=== PATIENT | female | born 1935 | race Caucasian/White ===

== ENCOUNTER 2020-12-19 13:19 | Outpatient (REF) | payer MEDICARE, OTHER, SELFPAY ==
--- NOTE | ~2020-12-19 | MM_ITS ---
EXAMINATION: MM DIAGNOSTIC DIGITAL BREAST TOMOSYNTHESIS, LEFT CLINICAL INFORMATION: 85-year-old for short interval follow-up probable benign nodular asymmetric density medial left breast, not persistent on prior diagnostic additional views. Assess for developing density. Family history breast cancer, sister. COMPARISON: Mammography: 04/18/2020, 04/11/2020 (BI-RADS 0), 04/06/2019, 03/31/2018, 03/26/2017 TECHNIQUE: Digital breast tomosynthesis is performed in both the craniocaudal and mediolateral oblique views along with computer-aided detection (CAD). Synthesized 2D images are generated from the tomosynthesis. Additional spot MLO and standard ML views are obtained. FINDINGS: There are scattered areas of fibroglandular density (ACR BI-RADS breast composition Category b). Parenchymal pattern is similar to prior studies. There is no developing density or interval mass or architectural abnormality. There is a biopsy clip marker again noted mid 3:00 position. No abnormal calcifications. No focal nodular asymmetry. Results are provided to the patient at time of visit by the technologist. MM/MM tomosynthesis diagnostic BI IMPRESSION: No mammographic evidence of malignancy. ASSESSMENT: BI-RADS 2: Benign RECOMMENDATION: Routine annual mammography screening, due in 6 months. This patient's information was entered into a reminder system with a target due date for their next mammogram.
== END 2020-12-19 13:20 | disposition home or self-care (01) ==
LOC: HO.MAMMO 13:19
PROVIDERS: Visit Provider Hospitalist
DX: R92.2 Inconclusive mammogram (principal)
CPT/HCPCS: 77062; 77066

== ENCOUNTER 2021-04-04 12:53 | Outpatient (REF) | payer MEDICARE, OTHER, SELFPAY ==
--- NOTE | ~2021-04-04 | MM_ITS ---
EXAMINATION: MM SCREENING DIGITAL BREAST TOMOSYNTHESIS, BILATERAL CLINICAL INFORMATION: Screening. Asymptomatic. Age 85. Family history breast cancer, sister. COMPARISON: Mammography: 12/19/2020, 04/18/2020, 04/11/2020, 04/06/2019, 03/31/2018 TECHNIQUE: Digital breast tomosynthesis is performed in both the craniocaudal and mediolateral oblique views along with computer-aided detection (CAD). Synthesized 2D images are generated from the tomosynthesis. Additional right exaggerated CC, right MLO views are provided. FINDINGS: There are scattered areas of fibroglandular density (ACR BI-RADS breast composition Category b). Parenchymal pattern is heterogeneously dense. There is no significant mass or architectural abnormality. No developing density. There are scattered round and vascular calcifications. Biopsy clip marker is again noted mid 4:00 left breast. The axilla and skin contours are unremarkable. No significant changes. MM/MM tomosynthesis screening BI IMPRESSION: No mammographic evidence of malignancy. ASSESSMENT: BI-RADS 2: Benign RECOMMENDATION: Routine annual mammography screening. This patient's information was entered into a reminder system with a target due date for their next mammogram.
== END 2021-04-04 12:54 | disposition home or self-care (01) ==
LOC: HO.MAMMO 12:53
PROVIDERS: PCP Hospitalist; Visit Provider Hospitalist
DX: Z12.31 Encounter for screening mammogram for malignant neoplasm of breast (principal)
CPT/HCPCS: 77063; 77067

== ENCOUNTER 2022-02-21 13:50 | Emergency (ER) | payer MEDICARE, OTHER, SELFPAY ==
--- NOTE | ~2022-02-21 | XR_ITS ---
EXAMINATION: XR CHEST CLINICAL INFORMATION: Chest discomfort COMPARISON: None TECHNIQUE: Frontal view of the chest was obtained. FINDINGS: No significant abnormality is noted involving the heart, lungs, mediastinum, bony thorax or soft tissues. XR/XR chest 1V IMPRESSION: Unremarkable examination.
[2022-02-21 14:16] VITALS: BP 156/78; BP 167/73; PULSE 79; PULSE 84; RESP 16; TEMP 36.7; O2SAT 95; BMI 22.5
--- NOTE | 2022-02-21 14:19 | ECG_ITS ---
Test Reason : CHEST DISCOMFORT Blood Pressure : / mmHG Vent. Rate : 084 BPM Atrial Rate : 084 BPM P-R Int : 142 ms QRS Dur : 076 ms QT Int : 374 ms P-R-T Axes : 073 017 068 degrees QTc Int : 441 ms Sinus rhythm with occasional Premature ventricular complexes Otherwise normal ECG When compared with ECG of 01-MAY-2005 05:34, Premature ventricular complexes are now Present Referred By: Generic ED Physician Electronically Signed By:Delbert Sinha
[2022-02-21 14:20] VITALS: PULSE 88; RESP 16
[2022-02-21 14:56] LABS: MANUAL DIFF FLAG NO
[2022-02-21 14:57] LABS: Basophils Percent Auto 0.2 % (0-2); Eosinophils Percent Auto 0.2 % (0-4); Hematocrit 32.9 % (37.0-47.0); Imm Gran Abs Auto 0.05 X10*3/uL (0.00-0.03); Imm Gran Pct Auto 0.4 % (0.0-0.4); Mean Corpuscular HGB Conc 36.5 g/dl (31.0-35.0); Mean Corpuscular Hemoglobin 34.7 pg (27.0-33.0); Mean Corpuscular Volume 95.1 fL (80.0-98.0); Mean Platelet Volume 9.6 fL (9.4-12.3); Monocytes Absolute Auto 0.7 X10*3/uL (0.1-1.2); Neutrophils Absolute Auto 12.2 x10*3/uL (2.0-8.3); Neutrophils Percent Auto 87.2 % (45-73); Platelet Count 286 X10*3/uL (160-400); Red Blood Count 3.46 X10*6/uL (4.20-5.50); Red Cell Distribution Width 12.9 % (11.0-16.0); White Blood Count 13.9 X10*3/uL (4.8-10.8)
--- NOTE | 2022-02-21 15:02 | ED.GENADULT ---
HPI - General Adult General Chief complaint: General Medical Stated complaint: INDEGESTION Time Seen by Provider: 02/21/22 14:49 Source: patient, family (Niece) and EMS Mode of arrival: EMS Limitations: no limitations History of Present Illness HPI narrative: 86-year-old female brought in by ambulance for feeling indigestion since last night, patient described as a burning sensation on the mid chest and epigastric area that has been constant, no radiation, associated with nausea but no vomiting, no shortness of breath, pain started after ate dinner last night patient ate cheeseburger with onion, no relieving factors, food will worsening the symptoms, had indigestion sensation in the past but never that constant. Patient also been complaining of constipation no bowel movement for the last 4 days, able to pass gas from below and also burp from above, no history of abdominal surgery in the past. Patient declined any previous history heart attack. Related Data Previous Rx's Medication Instructions Recorded omeprazole 20 mg capsule,delayed 20 mg PO DAILY #14 caps 02/21/22 release Allergies Allergy/AdvReac Type Severity Reaction Status Date / Time No Known Allergies Allergy Verified 02/21/22 14:18 [No Known Allergies*] Review of Systems Review of Systems: All other systems are reviewed and are negative Constitutional: Reports as per HPI and Reports no additional constitutional complaints Eyes: Reports as per HPI and Reports no additional eye complaints Reports system reviewed and no additional complaints, except as documented Cardiovascular: Reports as per HPI and Reports no additional cardiovascular complaints Respiratory: Reports as per HPI and Reports no additional respiratory complaints Gastrointestinal: Reports as per HPI and Reports no additional gastrointestinal complaints Genitourinary: Reports no additional female genitourinary complaints Musculoskeletal: Reports no additional musculoskeletal complaints Skin/Breast: Reports system reviewed and no additional complaints, except as docu Psychiatric: Reports no additional psychiatric complaints Endocrine: Reports no additional endocrine complaints Hematologic/Lymphatic: Reports no additional hematologic/lymphatic complaints Allergic/Immunologic: Reports no additional allergic/immunologic complaints Reports system reviewed and no additional complaints, except as documented and Reports Abnormal speech present [facility] Past Medical History Medical History No known health problems Social History Social History Alcohol intake: current Alcohol intake frequency: does not drink Patient Tobacco Use Status: Never used Tobacco Use of substances other than those prescribed or required for medical reasons: No Advance Directives: No Advance Directives Information Provided: Yes Physical Exam ED Vital Signs: Vital Signs - 24 hr 02/21/22 14:16 02/21/22 14:20 02/21/22 15:36 Temperature 98.0 F Pulse Rate 84 88 87 Respiratory Rate 16 16 24 H Blood Pressure 167/73 H 144/71 H Pulse Oximetry 95 98 Oxygen Delivery Method Room Air Room Air 02/21/22 20:01 Temperature 97.9 F Pulse Rate 85 Respiratory Rate 19 Blood Pressure 156/57 H Pulse Oximetry 96 Oxygen Delivery Method Room Air BMI result Body Mass Index 22.5 Vital signs have been reviewed as appeared to be correct. Blood pressure normal. Heart rate normal. Respiration rate normal. Temperature normal. Oxygen saturation normal. Appearance: Alert. Oriented X3. No acute distress. Head: Normal external exam. Normocephalic. Atraumatic. No Wiley signs noted. No raccoon eyes noted Eyes: PERRLA. EOMI. Conjunctiva and sclera normal. Eyelids normal. ENT: TM's Normal. Pharynx normal. Uvula midline. Moist mucous membranes. No trismus noted. No drooling noted. No muffled voice noted. Neck: Normal inspection. Neck supple. FROM. No adenopathy. Thyroid Normal. No meningeal signs. No neck mass noted. CVS: Normal heart rate and rhythm. Heart sound normal. No murmurs noted. Pulses normal throughout. Respiratory: No respiratory distress. Painless inspiration. Breath sounds normal. No wheezes/rales/rhonchi noted. Chest nontender. No accessory muscle usage noted or decreased air movement noted. Abdomen: Soft and nontender. Bowel sounds normal in all 4 quadrants. No distention noted. No organomegaly noted. No visible injury noted. Rectal exam: Hard stool in the vault, brown with no blood. Back: No CVA tenderness. Full range of motion noted. Skin: Skin warm and dry. Normal skin color. Normal skin turgor. No rashes/lesions/lacerations noted. Extremities: No lower extremity edema. Extremities exhibit normal range of motion. Extremities nontender. Neuro: Oriented X 3. Cranial nerve exam: II-XII are grossly intact No motor deficit. No sensory deficit. Reflexes normal. Course Course Course Narrative: 86-year-old female came in for evaluation of heartburn after eating cheeseburger was on urine last night, patient has unremarkable EKG with 3 troponin of negative, patient vomited undigested food in the ED with partial relief, nature of pain is not suggesting cardiac pain. Will start the patient on PPI and follow-up with GI. Constipation patient had disimpacted in the ED. Mild hypernatremia improved with a L of normal saline. Medical Decision Making Lab Data Lab results reviewed: Yes I reviewed the patient's lab results. Result diagrams: 02/21/22 14:51 02/21/22 19:39 Labs: Lab Results 02/21/22 02/21/22 02/21/22 Range/Units 14:51 14:51 16:01 WBC 13.9 H (4.8-10.8) X10*3/uL RBC 3.46 L (4.20-5.50) X10*6/uL Hgb 12.0 (12.0-16.0) g/dl Hct 32.9 L (37.0-47.0) % MCV 95.1 (80.0-98.0) fL MCH 34.7 H (27.0-33.0) pg MCHC 36.5 H (31.0-35.0) g/dl RDW 12.9 (11.0-16.0) % Plt Count 286 (160-400) X10*3/uL MPV 9.6 (9.4-12.3) fL Immature Gran % (Auto) 0.4 (0.0-0.4) % Neut % (Auto) 87.2 H (45-73) % Lymph % (Auto) 7.0 L (20-40) % [place] % (Auto) 5.0 (2-11) % Eos % (Auto) 0.2 (0-4) % Baso % (Auto) 0.2 (0-2) % Lymph # (Auto) 1.0 L (1.2-4.9) X10*3/uL [place] # (Auto) 0.7 (0.1-1.2) X10*3/uL Eos # (Auto) 0.0 (0.0-0.4) X10*3/uL Baso # (Auto) 0.0 (0.0-0.2) X10*3/uL Abs Immat Gran (auto) 0.05 H (0.00-0.03) X10*3/uL Absolute Neuts (auto) 12.2 H (2.0-8.3) x10*3/uL Absolute Nucleated RBC 0.000 (0.0-0.012) X10*3/uL Nucleated RBC % (auto) 0.0 (0.0-0.2) /100WBC Sodium 127 L (135-145) mmol/L Potassium 3.9 (3.3-5.1) mmol/L Chloride 97 (96-108) mmol/L Carbon Dioxide 19 L (22-29) mmol/L Anion Gap 15 (12-20) BUN 14 (9-16) mg/dL Creatinine 0.63 (0.5-1.4) mg/dL Estim Creat Clear Calc 53.0 Estimated GFR > 60 Random Glucose 113 (60-115) mg/dL Calcium 8.8 (8.4-10.2) mg/dL Troponin I High Sens 4.6 (<3.5-17.0) ng/L 02/21/22 02/21/22 02/21/22 Range/Units 16:01 19:39 19:39 WBC (4.8-10.8) X10*3/uL RBC (4.20-5.50) X10*6/uL Hgb (12.0-16.0) g/dl Hct (37.0-47.0) % MCV (80.0-98.0) fL MCH (27.0-33.0) pg MCHC (31.0-35.0) g/dl RDW (11.0-16.0) % Plt Count (160-400) X10*3/uL MPV (9.4-12.3) fL Immature Gran % (Auto) (0.0-0.4) % Neut % (Auto) (45-73) % Lymph % (Auto) (20-40) % [place] % (Auto) (2-11) % Eos % (Auto) (0-4) % Baso % (Auto) (0-2) % Lymph # (Auto) (1.2-4.9) X10*3/uL [place] # (Auto) (0.1-1.2) X10*3/uL Eos # (Auto) (0.0-0.4) X10*3/uL Baso # (Auto) (0.0-0.2) X10*3/uL Abs Immat Gran (auto) (0.00-0.03) X10*3/uL Absolute Neuts (auto) (2.0-8.3) x10*3/uL Absolute Nucleated RBC (0.0-0.012) X10*3/uL Nucleated RBC % (auto) (0.0-0.2) /100WBC Sodium 131 L (135-145) mmol/L Potassium 4.0 (3.3-5.1) mmol/L Chloride 98 (96-108) mmol/L Carbon Dioxide 26 (22-29) mmol/L Anion Gap 11 L (12-20) BUN 13 (9-16) mg/dL Creatinine 0.67 (0.5-1.4) mg/dL Estim Creat Clear Calc 49.8 Estimated GFR > 60 Random Glucose 112 (60-115) mg/dL Calcium 8.3 L (8.4-10.2) mg/dL Troponin I High Sens < 3.5 5.7 D (<3.5-17.0) ng/L Imaging Data Chest x-ray: Attestation: I personally reviewed and interpreted this imaging study as follows: Radiologist's impression: No acute intrathoracic pathology. ECG Data Attestation: I personally reviewed and interpreted this ECG as follows: Interpretation: Normal sinus rhythm at 84 beats per minute with occasional PVC, normal intervals, no ST-T changes. No change from previous EKG. Discharge Plan Discharge Clinical Impression: Esophagitis Patient Disposition: Home, Self-Care Instructions: Esophagitis (ED) Prescriptions: New omeprazole 20 mg capsule,delayed release(DR/EC) 20 mg PO DAILY Qty: 14 0RF Referrals: Randi Abel MD [Physician] -
[2022-02-21 15:16] LABS: Troponin-I High Sensitivity 4.6 ng/L (<3.5-17.0)
[2022-02-21] MEDS: Magnesium Hydrox/Alum Hydrox 30 ML ORAL.SUSP PO (15:21)
[2022-02-21] MEDS: bisacodyL 10 MG SUPP.RECT PR (15:22)
[2022-02-21] MEDS: Famotidine/PF 20 MG/2 ML VIAL IVPUSH (15:24)
[2022-02-21 15:36] VITALS: BP 144/71; PULSE 87; RESP 24; O2SAT 98
[2022-02-21] MEDS: ondansetron HCL 4 MG/2 ML VIAL IVPUSH (15:55)
[2022-02-21 16:45] LABS: Anion Gap 15 (12-20); Blood Urea Nitrogen 14 mg/dL (9-16); Calcium 8.8 mg/dL (8.4-10.2); Carbon Dioxide 19 mmol/L (22-29); Chloride 97 mmol/L (96-108); Estimated Glomerular Filt Rate > 60; Glucose Random 113 mg/dL (60-115); Potassium 3.9 mmol/L (3.3-5.1); Sodium 127 mmol/L (135-145)
[2022-02-21 17:06] LABS: Troponin-I High Sensitivity < 3.5 ng/L (<3.5-17.0)
[2022-02-21] MEDS: 0.9 % Sodium Chloride 1,000 ML 999 ML IV (17:11)
[2022-02-21 20:01] VITALS: BP 156/57; PULSE 85; RESP 19; TEMP 36.6; O2SAT 96
[2022-02-21 20:03] LABS: Anion Gap 11 (12-20); Blood Urea Nitrogen 13 mg/dL (9-16); Calcium 8.3 mg/dL (8.4-10.2); Carbon Dioxide 26 mmol/L (22-29); Chloride 98 mmol/L (96-108); Creatinine Clr Calc Pharmacy 49.8; Estimated Glomerular Filt Rate > 60; Glucose Random 112 mg/dL (60-115); Sodium 131 mmol/L (135-145)
[2022-02-21 20:14] LABS: Troponin-I High Sensitivity 5.7 ng/L (<3.5-17.0)
== END 2022-02-21 21:43 | disposition home or self-care (01) ==
PROVIDERS: Emergency Provider Emergency Medicine
DX: K20.90 Esophagitis, unspecified without bleeding (principal); K59.00 Constipation, unspecified; E87.0 Hyperosmolality and hypernatremia
CPT/HCPCS: 36415; 71045; 80048; 84484; 85025; 93005; 96361; 96374; 96375; 99284; 99285; J2405

== ENCOUNTER 2023-08-05 07:42 | Emergency (ER) | payer MEDICARE, OTHER, SELFPAY ==
--- NOTE | ~2023-08-05 | XR_ITS ---
EXAMINATION: XR CHEST CLINICAL INFORMATION: Left-sided chest pain COMPARISON: Chest x-ray February 21, 2022 TECHNIQUE: 2 views of the chest were obtained. Today's examination is limited secondary to difficulties with patient positioning. FINDINGS: Cardiac silhouette is normal in size. The lungs are adequately aerated. There is no gross lobar consolidation of the left lung base is not well visualized due to patient positioning. No large pleural effusion. No pneumothorax. Diffuse osteopenia with degenerative changes of the spine. XR/XR chest 2V IMPRESSION: No acute pulmonary pathology.
[2023-08-05 07:49] VITALS: BP 167/74; PULSE 87; O2SAT 96
[2023-08-05 07:52] VITALS: BP 155/79; PULSE 83; RESP 16; TEMP 36.6; O2SAT 97; BMI 20.9
--- NOTE | 2023-08-05 08:00 | ECG_ITS ---
Test Reason : CP Blood Pressure : / mmHG Vent. Rate : 073 BPM Atrial Rate : 073 BPM P-R Int : 154 ms QRS Dur : 072 ms QT Int : 376 ms P-R-T Axes : 080 015 051 degrees QTc Int : 414 ms Normal sinus rhythm Septal infarct , age undetermined Abnormal ECG When compared with ECG of 21-FEB-2022 14:34, Premature ventricular complexes are no longer Present Septal infarct is now Present Referred By: Generic ED Physician Electronically Signed By:Delbert Sinha
--- NOTE | 2023-08-05 08:13 | ED_ITS ---
HPI - Chest Pain General Chief Complaint: Chest Pain Stated Complaint: L CP W/DEEP BREATH X1 HOUR,WARM TO TOUCH PER EMS Time Seen by Provider: 08/05/23 08:04 Source: patient, EMS, RN notes reviewed and old records reviewed Mode of arrival: EMS History of Present Illness HPI narrative: 87-year-old female with a past medical history of ALS, bedbound, presenting to the ED complaining right-sided chest pain beneath the right breast worse with deep breathing x1 hour. Denies SOB, injury/fall, cough, fever, abdominal pain, nausea/vomiting. MD complaint: chest pain Related Data Previous Rx's Medication Instructions Recorded omeprazole 20 mg capsule,delayed 20 mg PO DAILY #14 caps 02/21/22 release Allergies Allergy/AdvReac Type Severity Reaction Status Date / Time No Known Allergies Allergy Verified 02/21/22 14:18 [No Known Allergies*] Review of Systems 2 Review of Systems: Constitutional: No Fever, No Chills ENT/Mouth: No Ear Pain, No Nasal Congestion, No sore throat, No Rhinorrhea, No Swallowing Difficulty Cardiovascular: + Chest Pain, No SOB Respiratory: No Cough, No Sputum Gastrointestinal: No Nausea, No Vomiting, No Abdominal pain Genitourinary: No Dysuria, No Urinary Frequency, No Hematuria, No Urinary Incontinence/retention Musculoskeletal: No joint pain, No Myalgias, No Joint Swelling Skin: No Skin Lesions, No rash Neuro: No Weakness Yes all other systems are reviewed and are negative Constitutional: Constitutional: Reports as per [facility] Past Medical History Attestation statement: The following information was validated with the patient. Source: old records reviewed Onset Date is defined in the Problem List Problems that require an onset date and time if occurred within 24 hrs of arrival to the ED Aortic Dissection and Rupture; Neurologic impairment; Cardiopulmonary Arrest; Endotracheal Intubation; Insertion or Replacement of Mechanical Circulatory Assist Device Medical History Bedbound ALS (amyotrophic lateral sclerosis) Social History Social History Alcohol intake: current Alcohol intake frequency: does not drink Patient Tobacco Use Status: Never used Tobacco Advance Directives: Yes Advance Directives Information Provided: Yes Advance Directives on File: No Physical Exam 2 Vital Signs: Vital Signs: Last Vital Signs Temp 97.8 F 08/05/23 07:52 Pulse 95 08/05/23 14:21 Resp 15 08/05/23 14:21 BP 137/67 08/05/23 14:21 Pulse Ox 94 08/05/23 14:21 O2 Del Method Room Air 08/05/23 14:21 BMI result Body Mass Index 20.9 Const: General: cooperative, healthy appearing and no acute distress O rientation/consciousness: patient oriented x3 Limitations: no limitations HEENT: Head: Yes normal to inspection and Yes atraumatic Ears: hearing grossly normal bilaterally General nose exam: Normal external nose present Face and sinus: Yes normal facial exam Eyes: General: appearance normal, both eyes and all related structures EOM: EOMs intact bilaterally Neck: Neck: Yes normal visual inspection and Yes no meningeal signs Chest: Chest palpation & inspection: normal inspection of the chest, no crepitus and no tenderness Resp: Effort & Inspection: normal respiratory effort and no respiratory distress Auscultation: clear to auscultation bilaterally, no crackles and no wheezes Cardio: Rate: regular rate Heart sounds: S1 normal heart sound present and S2 normal heart sound present GI: Inspection: Yes normal to inspection Palpation (GI): Soft to palpation, nontender, no guarding and not rigid Skin: Rashes: no rashes Wounds: no wounds Neuro: General: patient oriented x3, tone normal and no meningeal signs C ranial nerves: Yes CN's II-XII intact bilaterally Gait exam (Neuro): Normal gait present Extrem: General: Yes normal to inspection and Yes no pedal edema Course Course Course Narrative: -0949--no leukocytosis. H&H stable. Initial troponin negative, will obtain 3 hour repeat -COVID/flu/RSV negative -1017--D-dimer WNL, PE unlikely XR chest 2V IMPRESSION: No acute pulmonary pathology. -1334--troponin x2 negative, [place] unlikely Results discussed with patient including worrisome signs and symptoms and strict return precautions, and when to return to the emergency department. They verbalized understanding and feel safe for discharge at this time. Medications Administered Discontinued Medications Generic Name Dose Route Start Last Admin Trade Name Freq PRN Reason Stop Dose Admin Aspirin 325 mg 08/05/23 08:18 08/05/23 08:38 Aspirin Enteric Coated 325 Mg Tablet.Dr ALVAREZ 08/05/23 08:19 325 mg ONCE ONE Administration Medical Decision Making Medical Decision Making [facility] Narrative: 87-year-old female with a past medical history of ALS, bedbound, presenting to the ED complaining right-sided chest pain beneath the right breast worse with deep breathing x1 hour. On exam vital signs stable, NAD, nontoxic appearing, CP not reproducible, lungs CTA. Concern for ACS vs PE vs PNA. Lower suspicion for CHF. Plan: EKG, labs, CXR, viral testing Please refer to course for remaining clinical decision making, interpretation of labs/imaging results, and discussions with consultants and/or family members. Differential Diagnosis Differential Diagnoses: The differential diagnosis associated with the presentation includes As above Admission/Observation Consideration of admission/observation: Escalation of care including admission/observation considered Lab Data [facility] Lab Attestation statement: I reviewed the patient's lab results. 08/05/23 08:36 08/05/23 08:36 Labs: Lab Results 08/05/23 08/05/23 Range/Units 08:36 11:47 WBC 8.9 (4.8-10.8) X10*3/uL RBC 3.46 L (4.20-5.50) X10*6/uL Hgb 11.8 L (12.0-16.0) g/dl Hct 33.9 L (37.0-47.0) % MCV 98.0 (80.0-98.0) fL MCH 34.1 H (27.0-33.0) pg MCHC 34.8 (31.0-35.0) g/dl RDW 13.1 (11.0-16.0) % Plt Count 192 D (160-400) X10*3/uL MPV 9.2 L (9.4-12.3) fL Immature Gran % (Auto) 0.2 (0.0-0.4) % Neut % (Auto) 72.8 (45-73) % Lymph % (Auto) 17.8 L (20-40) % Real % (Auto) 8.1 (2-11) % Eos % (Auto) 0.8 (0-4) % Baso % (Auto) 0.3 (0-2) % Lymph # (Auto) 1.6 (1.2-4.9) X10*3/uL Real # (Auto) 0.7 (0.1-1.2) X10*3/uL Eos # (Auto) 0.1 (0.0-0.4) X10*3/uL Baso # (Auto) 0.0 (0.0-0.2) X10*3/uL Abs Immat Gran (auto) 0.02 (0.00-0.03) X10*3/uL Absolute Neuts (auto) 6.5 (2.0-8.3) x10*3/uL Absolute Nucleated RBC 0.000 (0.0-0.012) X10*3/uL Nucleated RBC % (auto) 0.0 (0.0-0.2) /100WBC PT 11.2 (11.1-13.3) SEC INR 0.9 (0.9-1.1) D-Dimer High Sensitivty 171 NG/ML Sodium 139 (135-145) mmol/L Potassium 4.2 (3.3-5.1) mmol/L Chloride 105 (96-108) mmol/L Carbon Dioxide 29 (22-29) mmol/L Anion Gap 9 L (12-20) BUN 15 (9-16) mg/dL Creatinine 0.59 (0.5-1.4) mg/dL Estim Creat Clear Calc 48.2 Estimated GFR > 60 Random Glucose 88 (60-115) mg/dL Calcium 9.2 D (8.4-10.2) mg/dL Magnesium 2.0 (1.6-2.6) mg/dL Total Bilirubin 0.3 (0.0-1.0) mg/dL Direct Bilirubin 0.1 (0.0-0.5) mg/dL AST 13 (5-31) U/L ALT 9 (0-31) U/L Alkaline Phosphatase 74 (39-117) U/L Troponin I High Sens < 2.7 < 2.7 (<3.5-17.0) ng/L B-Natriuretic Peptide 96 (<100) pg/mL Total Protein 6.2 L (6.5-8.0) g/dL Albumin 3.7 (3.5-5.0) g/dL Influenza Type A (PCR) NEGATIVE (Negative) Influenza Type B (PCR) NEGATIVE (Negative) RSV RNA Qual (PCR) NEGATIVE (Negative) SARS-CoV-2 RNA (RT-PCR) NEGATIVE (Negative) Independent Interpretation I performed an independent interpretation of an: EKG (My interpretation EKG normal sinus rhythm rate of 73. QRS 72. QTC 414. PVCs no longer present when compared to prior. No STEMI.) and Plain X-Ray Radiology Impression Discussion of test interpretation with radiology: I have reviewed the radiologist's reading. Independent Historian Clinical information obtained from an independent historian. History obtained from or confirmed by: EMS External Record Review External record reviewed: Inpatient record, Office record, Outpatient record, Prior outpatient labs, Prior outpatient radiology, Primary care record and Outside ED record Tests considered The following testing was considered but not selected: As above Chronic Conditions Patient?s care impacted by: Other (ALS) Discharge Plan Discharge Clinical Impression: Chest pain Patient Disposition: Home, Self-Care Instructions: Chest Pain (DC) Additional Instructions: Your blood work and x-ray were reassuring you tested negative for COVID, flu, RSV Please follow-up with her doctor If symptoms persist or worsen return to the ED Prescriptions: No Action omeprazole 20 mg capsule,delayed release(DR/EC) 20 mg PO DAILY Qty: 14 0RF Referrals: [facility] [place] Cardiovascular Services [Provider Group] Physician,Unknown J [Primary Care Provider] -
[2023-08-05 08:26] VITALS: RESP 19
[2023-08-05] MEDS: Aspirin Enteric Coated 325 MG TABLET.DR PO (08:38)
[2023-08-05 08:41] LABS: MANUAL DIFF FLAG NO
[2023-08-05 08:42] LABS: Basophils Percent Auto 0.3 % (0-2); Eosinophils Absolute Auto 0.1 X10*3/uL (0.0-0.4); Eosinophils Percent Auto 0.8 % (0-4); Hematocrit 33.9 % (37.0-47.0); Hemoglobin 11.8 g/dl (12.0-16.0); Imm Gran Abs Auto 0.02 X10*3/uL (0.00-0.03); Imm Gran Pct Auto 0.2 % (0.0-0.4); Lymphocytes Absolute Auto 1.6 X10*3/uL (1.2-4.9); Lymphocytes Percent Auto 17.8 % (20-40); Mean Corpuscular HGB Conc 34.8 g/dl (31.0-35.0); Mean Corpuscular Hemoglobin 34.1 pg (27.0-33.0); Mean Platelet Volume 9.2 fL (9.4-12.3); Monocytes Absolute Auto 0.7 X10*3/uL (0.1-1.2); Monocytes Percent Auto 8.1 % (2-11); Neutrophils Absolute Auto 6.5 x10*3/uL (2.0-8.3); Neutrophils Percent Auto 72.8 % (45-73); Platelet Count 192 X10*3/uL (160-400); Red Blood Count 3.46 X10*6/uL (4.20-5.50); Red Cell Distribution Width 13.1 % (11.0-16.0); White Blood Count 8.9 X10*3/uL (4.8-10.8)
[2023-08-05 08:49] LABS: INTERNATIONAL NORM RATIO 0.9 (0.9-1.1); Prothrombin Time 11.2 SEC (11.1-13.3)
[2023-08-05 08:51] LABS: D Dimer High Sensitivity 171 NG/ML
[2023-08-05 09:02] LABS: Alanine Aminotransferase 9 U/L (0-31); Albumin Level 3.7 g/dL (3.5-5.0); Alkaline Phosphatase 74 U/L (39-117); Anion Gap 9 (12-20); Aspartate Amino Transferase 13 U/L (5-31); Bilirubin Direct 0.1 mg/dL (0.0-0.5); Bilirubin Total 0.3 mg/dL (0.0-1.0); Blood Urea Nitrogen 15 mg/dL (9-16); Calcium 9.2 mg/dL (8.4-10.2); Carbon Dioxide 29 mmol/L (22-29); Chloride 105 mmol/L (96-108); Creatinine Clr Calc Pharmacy 48.2; Estimated Glomerular Filt Rate > 60; Glucose Random 88 mg/dL (60-115); Potassium 4.2 mmol/L (3.3-5.1); Sodium 139 mmol/L (135-145); Total Protein 6.2 g/dL (6.5-8.0)
[2023-08-05 09:06] LABS: B Type Natriuretic Peptide 96 pg/mL (<100)
[2023-08-05 09:22] LABS: Troponin-I High Sensitivity < 2.7 ng/L (<3.5-17.0)
[2023-08-05 09:38] LABS: Influenza A PCR NEGATIVE (Negative); Influenza B PCR NEGATIVE (Negative); Resp Syncy Virus RNA Qual PCR NEGATIVE (Negative); SARS COV2 PCR INHOUSE NEGATIVE (Negative)
[2023-08-05 12:20] LABS: Troponin-I High Sensitivity < 2.7 ng/L (<3.5-17.0)
[2023-08-05 14:21] VITALS: BP 137/67; PULSE 95; RESP 15; O2SAT 94
== END 2023-08-05 15:41 | disposition home or self-care (01) ==
PROVIDERS: Physician Assistant; Emergency Provider Emergency Medicine
DX: R07.9 Chest pain, unspecified (principal); G12.21 Amyotrophic lateral sclerosis; Z79.899 Other long term (current) drug therapy; Z20.822 Contact with and (suspected) exposure to COVID-19; Z20.828 Contact with and (suspected) exposure to other viral communicable diseases
CPT/HCPCS: 0241U; 36415; 71046; 80048; 80076; 83735; 83880; 84484; 85025; 85379; 85610; 93005; 99283; 99284

== ENCOUNTER → 2023-08-05 08:00 | Outpatient (BNV) | payer MEDICARE, OTHER, SELFPAY | PROVIDERS: Emergency Provider Emergency Medicine; Visit Provider Internal Medicine Cardiovascular Disease | DX: R94.31 Abnormal electrocardiogram [ECG] [EKG] (principal) | CPT/HCPCS: 93010 ==

== ENCOUNTER 2023-09-16 09:46 | Emergency (ER) | payer MEDICARE, OTHER, SELFPAY ==
--- NOTE | ~2023-09-16 | XR_ITS ---
EXAMINATION: XR SHOULDER, LEFT CLINICAL INFORMATION: Fall COMPARISON: None available. TECHNIQUE: Four views of the left shoulder. FINDINGS: Decreased bone marrow density which decreases sensitivity for fracture evaluation. No acute visible fracture or dislocation. Decreased acromiohumeral interval suggesting rotator cuff pathology. Degenerative arthropathy of the glenohumeral and acromioclavicular joints. Joint spaces and alignment are otherwise maintained. Soft tissues are unremarkable. Visualized portions of the left chest are unremarkable. XR/XR shoulder LT min 2V IMPRESSION: 1. Decreased bone marrow density which decreases sensitivity for fracture evaluation. 2. No acute visible fracture or dislocation. 3. Decreased acromiohumeral interval suggesting rotator cuff pathology. 4. Degenerative arthropathy of the glenohumeral and acromioclavicular joints.
--- NOTE | ~2023-09-16 | CT_ITS ---
Examination: CT chest, abdomen pelvis with IV contrast. CLINICAL INDICATION: Fall, left hip pain. COMPARISON: Chest x-ray 1-24. TECHNIQUE: 5 mm thin axial and reformatted 3 mm thin sagittal and coronal images of chest, abdomen and pelvis were obtained without contrast. DLP 555. This CT examination was performed using dose optimization technique as appropriate, variously including the following: Automated exposure control Adjustment of MA and/or KV according to patient size(this includes techniques or standardized protocols for targeted exams where dose is matched to indication/reason for exam; extremities or head. Use of iterative reconstruction techniques. FINDINGS: CHEST: LUNGS: The lungs are well-expanded with patchy focal atelectasis right lung base. There is mild atelectatic changes right middle lobe and lingula. There is a 4 mm nodule in the lingula axial image 38/6. There is small nodules seen adjacent to this nodule measuring 2-3 mm. A tumor nodule is seen in the right lower lobe posterior segment image 40/6. No acute consolidation seen. Mediastinum: Thyroid lobes are symmetrical and normal. The central trachea and the bronchi widely patent. The heart size and the great vessels are normal caliber. No pericardial effusion seen. There is mild coronary artery calcifications. Pleura: There is no pleural effusion, thickening or calcification. Axilla: No abnormal size axillary lymph nodes. The chest wall is unremarkable. Osseous structures: No aggressive lytic or sclerotic process seen. There is no visible bony fracture. Abdomen and pelvis: Liver, ducts and gallbladder: The liver is normal size, density without focal lesions or intrahepatic ductal dilatation. DOS bladder is slightly prominent but no radiopaque calculi seen. There is no wall thickening. Pancreas: Unremarkable. Spleen: Unremarkable. Adrenal glands: Unremarkable. Bilateral kidneys: There is a complex exophytic cyst upper pole right kidney with a calcified septation or wall measures 4.2 x 3.8 cm in the upper pole right kidney smaller cysts are seen in the left kidney. There is no radiopaque calculi are hydronephrosis. Lymphovascular structures: Mild to sclerotic calcification of abdominal aorta is noted GI tract: There is scattered stool, gas seen throughout the colon without distention. The small bowel loops are normal caliber. Appendix is not visualized with certainty. No free air or free fluid seen. Abdominal wall: Unremarkable. Pelvis: The urinary bladder is mildly distended no bladder wall thickening seen. There is no free fluid Osseous structures: There is no aggressive lytic or sclerotic process seen. Is endplate deformity L1 vertebra. There are degenerative disc changes with vacuum disc phenomena throughout lumbar spine. CT/CT abdomen pelvis w IV con IMPRESSION: 1. No acute process seen in the chest, abdomen or pelvis. 2. There are small pulmonary nodules in the lingula and right lower lobe. 3. There is a complex cyst upper pole right kidney with a calcified septation or wall. There are smaller cysts in the left kidney. 4. Mild constipation without obstruction. 5. Degenerative disc changes throughout lumbar spine with endplate deformity L1 vertebra.
--- NOTE | ~2023-09-16 | XR_ITS ---
EXAMINATION: XR TIBIA AND FIBULA, RIGHT CLINICAL INFORMATION: Pain COMPARISON: None available. TECHNIQUE: AP and lateral views of the right tibia and fibula were obtained. FINDINGS: No acute visible fracture or dislocation. Slight enthesopathy at the patellar tendon insertion site. Joint space alignment are maintained. Soft tissues are unremarkable. XR/XR tibia fibula RT 2V IMPRESSION: 1. No acute visible fracture or dislocation. 2. Slight enthesopathy at the patellar tendon insertion site.
--- NOTE | ~2023-09-16 | CT_ITS ---
EXAMINATION: CT CHEST WITHOUT CONTRAST CLINICAL INFORMATION: Aspiration COMPARISON: Previous chest x-ray from earlier the same day chest CT from yesterday TECHNIQUE: Multidetector volumetric CT imaging of the chest was done. Axial MIP volume rendering provided. Sagittal and coronal reformatted images were obtained. This CT examination was performed using dose optimization techniques as appropriate, variously including the following: *Automated exposure control *Adjustment of mA and/or kV according to patient size (this includes techniques or standardized protocols for targeted exams where dose is matched to indication/reason for exam; i.e. extremities or head) *Use of iterative reconstruction technique DLP: 167 mGy-cm FINDINGS: LUNGS: Several small clustered nodules in the right lower lobe and lingula, largest measuring 4 mm probably representing tree-in-bud appearance or mild airways disease. This is similar to yesterday's exam. The lungs are otherwise clear. No evidence of pneumonia. No endobronchial or endotracheal lesion. MEDIASTINUM: The mediastinum is normal. CORONARY ARTERY CALCIFICATION: Mild PLEURA: There is no pleural effusion. No pleural mass or thickening. AXILLA: No lymphadenopathy. UPPER ABDOMEN: Right renal cyst. No imaging follow-up recommended. Layering high attenuation in the gallbladder, new. This may represent vicarious excretion from yesterday's IV contrast. OSSEOUS STRUCTURES: Degenerative changes of the spine. Mild old L1 prevertebral body compression fracture. CT/CT chest wo IV con IMPRESSION: No evidence of pneumonia. Mild airways disease in the lingula and right lower lobe similar to yesterday's exam. Fleischner guidelines were followed.
--- NOTE | ~2023-09-16 | XR_ITS ---
EXAMINATION: XR CHEST CLINICAL INFORMATION: Aspiration. Fever. COMPARISON: Previous chest x-ray August [address] from yesterday TECHNIQUE: Frontal view of the chest was obtained. FINDINGS: The cardiac and mediastinal contours are stable. The lungs are clear. No pleural effusion or pneumothorax. Degenerative changes of the thoracic spine. XR/XR chest 1V IMPRESSION: Unremarkable examination.
--- NOTE | ~2023-09-16 | CT_ITS ---
EXAMINATION: CT HEAD WITHOUT CONTRAST CLINICAL INFORMATION: Head injury COMPARISON: None TECHNIQUE: Contiguous axial imaging was performed from the skull base to vertex without intravenous administration of contrast. This CT examination was performed using dose optimization techniques as appropriate, variously including the following: *Automated exposure control *Adjustment of mA and/or kV according to patient size (this includes techniques or standardized protocols for targeted exams where dose is matched to indication/reason for exam; i.e. extremities or head) *Use of iterative reconstruction technique DLP: 741 mGy-cm FINDINGS: There is no evidence of acute intracranial hemorrhage or territorial infarction. Chronic white matter small vessel ischemic changes. Mild cerebral atrophy with commensurate ventricular changes. No abnormal mass effect or midline shift is seen. Nap[place] to white matter differentiation is well preserved. No extra-axial fluid collections are identified. The ventricles are normal in size. There is no abnormal attenuation within the brain parenchyma. The osseous structures and soft tissues are normal. The mastoid air cells and visualized portions of the paranasal sinuses are well aerated. CT/CT cervical spine wo IV con IMPRESSION: 1. No acute intracranial pathology. 2. Chronic white matter small vessel ischemic changes. EXAMINATION: Noncontrast CT scan of the cervical spine. INDICATION: Neck pain COMPARISON: None. TECHNIQUE: Helical, multidetector axial images were obtained from the occiput to the upper thorax. Coronal and sagittal reformats of the cervical spine were provided for interpretation. DLP: 741 mGy-cm FINDINGS: No acute fractures or dislocations of the cervical spine are seen. Multilevel degenerative changes. Anatomic alignment and positioning of the vertebral bodies and posterior elements is noted. The atlantoaxial joint and craniovertebral articulations are normal without evidence of subluxation. There is no prevertebral soft tissue swelling. Biapical pleural parenchymal lung scarring. IMPRESSION: 1. No acute visible fracture or dislocation. 2. Multilevel degenerative changes.
[2023-09-16 09:57] VITALS: BP 158/94; BP 194/94; PULSE 78; PULSE 87; RESP 20; TEMP 37.1; O2SAT 93; BMI 15.5
[2023-09-16 10:59] VITALS: BP 192/76; PULSE 70; RESP 15; TEMP 36.8; O2SAT 94
--- NOTE | 2023-09-16 11:07 | ECG_ITS ---
Test Reason : FALL Blood Pressure : / mmHG Vent. Rate : 077 BPM Atrial Rate : 077 BPM P-R Int : 122 ms QRS Dur : 080 ms QT Int : 404 ms P-R-T Axes : 000 172 117 degrees QTc Int : 457 ms Suspect limb leads reversal Normal sinus rhythm Right axis deviation Septal infarct (cited on or before 05-AUG-2023) Abnormal ECG When compared with ECG of 05-AUG-2023 08:43, QRS axis Shifted right Questionable change in initial forces of Septal leads Nonspecific T wave abnormality now evident in Lateral leads Referred By: Daniela Olsen Electronically Signed By:Delbert Sinha
[2023-09-16 11:42] LABS: MANUAL DIFF FLAG NO
[2023-09-16 11:46] LABS: Basophils Percent Auto 0.1 % (0-2); Hematocrit 35.7 % (37.0-47.0); Hemoglobin 12.8 g/dl (12.0-16.0); Imm Gran Abs Auto 0.03 X10*3/uL (0.00-0.03); Imm Gran Pct Auto 0.3 % (0.0-0.4); Lymphocytes Absolute Auto 0.8 X10*3/uL (1.2-4.9); Lymphocytes Percent Auto 6.7 % (20-40); Mean Corpuscular HGB Conc 35.9 g/dl (31.0-35.0); Mean Corpuscular Volume 94.9 fL (80.0-98.0); Mean Platelet Volume 9.8 fL (9.4-12.3); Monocytes Absolute Auto 0.5 X10*3/uL (0.1-1.2); Neutrophils Percent Auto 88.9 % (45-73); Platelet Count 263 X10*3/uL (160-400); Red Blood Count 3.76 X10*6/uL (4.20-5.50); Red Cell Distribution Width 13.1 % (11.0-16.0); White Blood Count 11.3 X10*3/uL (4.8-10.8)
[2023-09-16 11:57] LABS: Anion Gap 19 (12-20); Blood Urea Nitrogen 25 mg/dL (9-16); Calcium 9.8 mg/dL (8.4-10.2); Carbon Dioxide 23 mmol/L (22-29); Chloride 104 mmol/L (96-108); Creatinine Clr Calc Pharmacy 40.5; Estimated Glomerular Filt Rate > 60; Glucose Random 120 mg/dL (60-115); Sodium 143 mmol/L (135-145)
[2023-09-16 12:04] LABS: Troponin-I High Sensitivity 12.2 ng/L (<3.5-17.0)
[2023-09-16] MEDS: 0.9 % Sodium Chloride 500 ML 999 ML IV (12:08)
[2023-09-16] MEDS: HYDROmorphone HCl 0.5 MG/0.5 ML SYRINGE 0.25 MG IVPUSH ×2 (12:18→16:52)
[2023-09-16] MEDS: iohexoL 350 MG/ML 100 ML INFUS..BTL IV (12:40)
[2023-09-16 13:04] VITALS: BP 148/53; PULSE 86; RESP 15; TEMP 36.4; O2SAT 97
--- NOTE | 2023-09-16 13:21 | ED_ITS ---
HPI - Fall General Chief Complaint: Fall Stated Complaint: FALL OOB/FOUND ON FLOOR,LLE DEFORMITY PER EMS Time Seen by Provider: 09/16/23 10:00 Related Data Previous Rx's Medication Instructions Recorded omeprazole 20 mg capsule,delayed 20 mg PO DAILY #14 caps 02/21/22 release Allergies Allergy/AdvReac Type Severity Reaction Status Date / Time No Known Allergies Allergy Verified 02/21/22 14:18 [No Known Allergies*] [facility] Past Medical History Medical History Bedbound ALS (amyotrophic lateral sclerosis) Social History Social History Alcohol intake: current Alcohol intake frequency: does not drink Patient Tobacco Use Status: Never used Tobacco Smoked in Last 30 Days: No Use of substances other than those prescribed or required for medical reasons: No Advance Directives: No Advance Directives Information Provided: No Physical Exam 2 Vital Signs: Vital Signs: Last Vital Signs Temp 97.6 F 09/16/23 13:04 Pulse 86 09/16/23 13:04 Resp 15 09/16/23 13:04 BP 148/53 H 09/16/23 13:04 Pulse Ox 97 09/16/23 13:04 O2 Del Method Room Air 09/16/23 13:04 BMI result Body Mass Index 15.5 Medications Administered Discontinued Medications Generic Name Dose Route Start Last Admin Trade Name Freq PRN Reason Stop Dose Admin Hydromorphone HCl 0.25 mg 09/16/23 11:28 09/16/23 12:18 Hydromorphone Hcl 0.5 Mg/0.5 Ml Syringe IVPUSH 09/16/23 11:29 0.25 mg ONCE ONE Administration Protocol Sodium Chloride 500 mls @ 999 mls/hr 09/16/23 11:15 09/16/23 13:12 Ns IV 09/16/23 11:45 Infused .Q31M AARON Infusion Iohexol 100 ml 09/16/23 12:40 09/16/23 12:40 Iohexol 350 Mg/Ml 100 Ml Infus..Btl IV 09/16/23 12:41 85 ml ONCE ONE Administration Medical Decision Making Medical Decision Making MDM Narrative: Patient is status post accidental fall has a history of ALS. Has left-sided weakness to begin with. Has contraction to the left upper extremity. CT scan of the head C-spine chest abdomen pelvis was done. I reviewed the CT head which was grossly negative for any acute evidence of bleeding. I reviewed radiology's reading of the CT head C-spine chest abdomen pelvis. There is no acute fracture noted. X-ray of the shoulder by my interpretation also showed no acute fracture. X-ray of the tib-fib showed no acute fracture. Patient's CPK was mildly elevated at 830. Her EKG is unchanged. Her troponin is negative. My interpretation of her EKG showed a sinus rhythm heart rate is 70 FL QRS QTC within normal limits is no acute ST segment elevation. Case discussed with patient's daughter. Carlton patient is not quite safe at home. Will get physical therapy to evaluate patient. Baseline patient is nonambulatory. Will get case management to evaluate patient. Differential Diagnosis Differential Diagnoses: The differential diagnosis associated with the presentation includes Fracture, intracranial bleeding, electrolyte abnormalities Admission/Observation Consideration of admission/observation: Escalation of care including admission/observation considered Consult Healthcare Provider Management of the patient was discussed with: [employer] Specialist (Physical therapy and case management) Lab Data MDM Lab Attestation statement: I reviewed the patient's lab results. 09/16/23 11:37 09/16/23 11:37 Labs: Lab Results 09/16/23 Range/Units 11:37 WBC 11.3 H (4.8-10.8) X10*3/uL RBC 3.76 L (4.20-5.50) X10*6/uL Hgb 12.8 (12.0-16.0) g/dl Hct 35.7 L (37.0-47.0) % MCV 94.9 (80.0-98.0) fL MCH 34.0 H (27.0-33.0) pg MCHC 35.9 H (31.0-35.0) g/dl RDW 13.1 (11.0-16.0) % Plt Count 263 D (160-400) X10*3/uL MPV 9.8 (9.4-12.3) fL Immature Gran % (Auto) 0.3 (0.0-0.4) % Neut % (Auto) 88.9 H (45-73) % Lymph % (Auto) 6.7 L (20-40) % [place] % (Auto) 4.0 (2-11) % Eos % (Auto) 0.0 (0-4) % Baso % (Auto) 0.1 (0-2) % Lymph # (Auto) 0.8 L (1.2-4.9) X10*3/uL [place] # (Auto) 0.5 (0.1-1.2) X10*3/uL Eos # (Auto) 0.0 (0.0-0.4) X10*3/uL Baso # (Auto) 0.0 (0.0-0.2) X10*3/uL Abs Immat Gran (auto) 0.03 (0.00-0.03) X10*3/uL Absolute Neuts (auto) 10.0 H (2.0-8.3) x10*3/uL Absolute Nucleated RBC 0.000 (0.0-0.012) X10*3/uL Nucleated RBC % (auto) 0.0 (0.0-0.2) /100WBC Sodium 143 (135-145) mmol/L Potassium 3.0 L (3.3-5.1) mmol/L Chloride 104 (96-108) mmol/L Carbon Dioxide 23 (22-29) mmol/L Anion Gap 19 (12-20) BUN 25 H (9-16) mg/dL Creatinine 0.65 (0.5-1.4) mg/dL Estim Creat Clear Calc 40.5 Estimated GFR > 60 Random Glucose 120 H (60-115) mg/dL Calcium 9.8 D (8.4-10.2) mg/dL Total Creatine Kinase 837 H (26-140) U/L Troponin I High Sens 12.2 D (<3.5-17.0) ng/L Independent Interpretation I performed an independent interpretation of an: EKG (EKG showed a sinus pattern heart rate is 80 FL QRS QTC within normal limits it is nonspecific T-wave flattening noted.), Plain X-Ray (X-ray of the shoulder x-ray of the tib-fib grossly negative) and CT Scan (CT head grossly negative) Radiology Impression Discussion of test interpretation with radiology: I have reviewed the radiologist's reading. Independent Historian Clinical information obtained from an independent historian. History obtained from or confirmed by: Other (Patient's sister) External Record Review No significant old records noted Chronic Conditions ALS Discharge Plan Discharge Clinical Impression: Contusion, Abrasion of skin Patient Disposition: Still a Patient Prescriptions: No Action omeprazole 20 mg capsule,delayed release(DR/EC) 20 mg PO DAILY Qty: 14 0RF
[2023-09-16 15:49] LABS: COVID-19 Test Negative (Negative); IDNOW Serial# 9DB6401D
--- NOTE | 2023-09-16 16:15 | PC.NURSE ---
pts sister gave her a sip of water through a straw, pt started coughing, O2 dropped to 77%. pt coughing, sat upright, recovered o2 to 92%. educated sister on not giving water to the pt. pt now NPO pending swallow eval
--- NOTE | 2023-09-16 16:29 | PHA.MEDREC ---
Pharmacy Consult ? Medication Reconciliation Pharmacy has completed the medication reconciliation. Patient's daugther reported medicaitons. Believes that patient is no longer taking amlodipine. Patient confirmed that she is no taking amlodipine. Report patient is not taking Sinemet. Mary Ellen Aguilar, PharmD
--- NOTE | 2023-09-16 16:31 | MHC.CM.ED ---
Received case management consult from Dr Olsen. Patient came to the ER due to a fall. Met with patient and sister, Sister Peggy. Patient lives with her , Max. Max has Alzheimers. Patient has a history of ALS that mostly affects for left sided extremities. There is a caregiver that is in the home from 9a-12pm then 4p-7pm. Patient was found on the floor by the health care recruiter this morning. Work up essentially negative. Patient has a hospital bed with half rails that was provided from ALS. Patient is typically able to use her right arm and leg to reposition herself. Patient has not been able to do this for 24 hours. After speaking with patient's daughter, Libby, via telephone at [phone], will try for STR under [facility] at [facility]. If [facility] is unable to offer a bed will try referrals to [facility] [place] and [facility]. Libby and her brother live on the [facility]. They will be able to take their father in and visit mother. Referral made to [facility]. Continue to monitor for d/c needs.
[2023-09-16 16:52] VITALS: PULSE 82; O2SAT 92
[2023-09-16] MEDS: 0.9 % Sodium Chloride 1,000 ML 999 ML IV (16:53)
[2023-09-16 22:09] VITALS: BP 168/63; PULSE 76; RESP 12; O2SAT 95
--- NOTE | 2023-09-16 22:20 | PC.NURSE ---
Pt currently sleeping at the bedside. No apparent distress noted. VSS. Breaths are even regular and unlabored. Monitoring is ongoing.
[2023-09-16 22:51] LABS: Appearance Urine Clear; Color Urine Dark Yellow; Glucose Urine UA Negative (Negative); Leukocyte Esterase Urine Negative (Negative); Nitrite Urine Negative (Negative); PH 5.5 (5.0-9.0); Specific Gravity - Urine >= 1.030 (1.005-1.025); UMIC TRIGGER UACC YES; Urine Blood Negative (Negative); Urine Ketones 15 mg/dL (Negative); Urine Protein 30 (1+) mg/dL (Neg-Trace)
[2023-09-16 23:04] LABS: Bacteria Urine 4+ (None Seen); Calcium Oxalate Crystals Urine Present; Hyaline Casts Urine 0-2 /LPF (0-2); RBC Urine 0-2 /HPF (0-2); WBC Urine 0-5 /HPF (0-5)
[2023-09-16 23:30] VITALS: BP 177/67; PULSE 77; RESP 16; TEMP 37.5; O2SAT 96
--- NOTE | 2023-09-16 23:34 | MHC.EDTECH ---
This tech took over care of patient at 2300,hourly rounds and vitals completed,patient has a pure wick placed by previous shift,patient is clean and dry and repositioned to comfort. Call moser in reach
[2023-09-17] VITALS (7 sets, daily range): BP systolic 152–207; BP diastolic 50–74; PULSE 66–75; RESP 14–16; TEMP 36.6–37.9; O2SAT 94–100
--- NOTE | 2023-09-17 00:08 | MHC.EDTECH ---
This tech placed patient in a hospital bed for comfort, patient was giving mouth care,and a rectal temp was taken and is 99.5 TOMMIE Bernard made aware
--- NOTE | 2023-09-17 02:09 | MHC.EDTECH ---
Hourly rounds and vitals completed,patient repositioned to comfort,patient is clean and dry,and call moser in reach
--- NOTE | 2023-09-17 03:56 | MHC.EDTECH ---
Addendum entered by Laura Morrissey 09/17/23 04:26: Mouth care giving Original Note: Hourly rounds and vitals completed, pure wick was replaced, patient was incont. of a moderate amount of urine, cecy-care given and pt repositioned o comfort,call moser in reach
--- NOTE | 2023-09-17 06:19 | MHC.EDTECH ---
Hourly rounds and vitals completed,BP is elevated 184/67 RN is aware. Emptied 200MLS of urine from canister,patient was repositioned to comfort and is clean and dry.Call moser in reach
--- NOTE | 2023-09-17 08:12 | PC.NURSE ---
patient resting quietly in bed, patient clean, linens dry. patient respirations equal and unlabored. patient shows no signs of distress, able to make needs known. skin PWD
[2023-09-17] MEDS: Acetaminophen Supp 650 MG SUPP.RECT PR ×2 (09:27→17:11)
--- NOTE | 2023-09-17 09:31 | PC.NURSE ---
patient requested pain medication, patient medicated with pr tylenol per MAR
[2023-09-17] MEDS: hydroCHLOROthiazide 25 MG TABLET PO (13:07)
--- NOTE | 2023-09-17 13:39 | MHC.CM.ED ---
[facility] is in the process of the nurse reviewing patient's info. More clinical info sent to [facility]. Patient, Ed and son all made aware at bedside. Left voicemail for patient's daughter, Libby, via telephone at [phone] requesting return telephone call for update. Continue to monitor for d/c needs.
--- NOTE | 2023-09-17 14:12 | MHC.CM.ED ---
Received return telephone call from patient's daughter Libby. Libby aware [facility] bed. Also aware that physical therapy does not feel patient would be appropriate for STR. LTC vs 24/02 care is recommended. Libby has been trying to find LTC for patient. However there has not been any availability in her area. 2 of patient's providers have recommended meeting to discuss hospice for patient. Libby agreeable to hospice informational meeting via telephone. Referral made via [employer]. [facility] in [place] and [place] made aware of this. Referral also broadcasted within 15 miles of patient's residence at Libby's request. Referral also made to [facility] at Libby's request. Continue to monitor for d/c needs.
--- NOTE | 2023-09-17 16:59 | MHC.SLORD ---
Addendum entered and electronically signed by SALVATORE Lin 09/17/23 17:32: OFFENDER EMPLOYMENT SPECIALIST unable to edit OFFENDER EMPL[employer] SPECIALIST d/c summary w/ this information d/t patient not yet being admitted to hospital. Original Note: Speech Language Pathology Order Status: Per RN, patient aspirated on thick chocolate liquid via specialized sippy cup brought in by family this afternoon. Pt made NPO. OFFENDER EMPLOYMENT SPECIALIST to re-evaluate tomorrow AM.
[2023-09-17] MEDS: Piperacillin Sodium/Tazobactam 3.375 GM in 0.9 % Sodium Chloride 50 ML IV (17:11)
--- NOTE | 2023-09-17 17:27 | PC.NURSE ---
patient had aspiration event in front of RN and tech prior to changing her, patient was in the upright position drinking out of the sippy cup that family provided with chocolate shake family brought in. patient desat down to 84% on room air, had trouble breathing. patient placed on 2lNC, having a hard time clearing her throat. patient recovered, provider aware, chest xrays ordered, patient also noted to be febrile 100.2 rectal temp. patient medicated per OCT, alert and oriented. speech and swallow aware of situation, will reeval patient tomorrow, patient is to remain NPO until tomorrows re eval.
[2023-09-17 18:30] LABS: IDNOW Serial# 152EDE1D; Influenza A Negative (Negative); Influenza B2 Negative (Negative)
--- NOTE | 2023-09-17 20:16 | MHC.EDTECH ---
Patient inc therefore patient changed and repositioned
--- NOTE | 2023-09-17 20:19 | MHC.CM.ED ---
Spoke with PA regarding need for a MOLST. Both HCP and MOLST not on file. Provider is evaluating if patient will be medically admitted. Will speak with family in the morning regarding MOLST/HCP
[2023-09-17] MEDS: diazePAM 5 MG TABLET 2.5 MG PO (20:37)
--- NOTE | 2023-09-17 21:46 | MHC.EDTECH ---
Patient inc therefore patient changed and repositioned
[2023-09-18 02:26] VITALS: BP 156/53; PULSE 61; RESP 14; TEMP 36.7; O2SAT 97
[2023-09-18 08:26] VITALS: TEMP 36.7
[2023-09-18] MEDS: hydroCHLOROthiazide 25 MG TABLET PO (08:27)
[2023-09-18] MEDS: Escitalopram Oxalate 5 MG TABLET PO (08:28)
[2023-09-18] MEDS: diazePAM 5 MG TABLET 2.5 MG PO ×2 (08:28→21:49)
[2023-09-18 08:32] VITALS: BP 189/68; PULSE 77; RESP 16; TEMP 36.7; O2SAT 98
--- NOTE | 2023-09-18 08:37 | PC.NURSE ---
Turned and repositioned onto back, per patients request pillows placed between legs and under butocks. Po meds crushed, toleratd well
--- NOTE | 2023-09-18 09:34 | MHC.SL.DTX ---
Dysphagia Diet modifications: DOWNGRADE: Puree (NDD2) with NECTAR THICK liquids by tsp or sippy cup Last documented Solid diet consistencies: Grnd/Mech Altered (NDD2) Last documented Liquid consistency: Thin Last documented Medication Administration:Crushed with Puree Changes made to current diet?: YES DOWNGRADE Liquid Consistency and Strategies: Liquid Intake Recommendation: NECTAR THICK Compensatory Strategies for Safe Swallow: Small Sips Liquids by tsp if given by cup Liquids by patient provided sippy cup No Straws Double Swallow Compensatory Strategies for Safe Swallow(b): Sitting Upright (90 deg) Double Swallow No Straw Small Bites and Sips Alternate Liquids/Solids Rate of Ingestion Change Solid Food Consistency: Dietary Recommendations: PUREED (NDD1) Additional Modifications to Solids: Add sauces and gravies and blend well. Patient requires 1-1 feeding Oral Medication Intake: Crushed in puree Strategies and Precautions to be Taken for Safe Swallow: Sitting Upright (90 deg) Double Swallow No Straw Liquids by tsp or patient supplied sippy cup Small Bites and Sips Alternate Liquids/Solids Rate of Ingestion Change Supervision While Eating and/Drinking: Total Assistance (1:1) Foods to Avoid: Mixed consistencies (solids and liquids), sticky or congealed purees Swallowing Recommended Treatments: Compensatory strategies Level of Impact on: Daily activities: Interpersonal interactions: Education: Employment: Community: Prognosis for Improvement: Recommendation for Speech: Comment: Patient seen for swallow re-evaluation this a.m. with reports of patient choking/coughing on thin liquids and ground solids (e.g. dairy helper reported choking on oatmeal that was attempted this a.m.). RN also reported kitchen brought regular tray this a.m., Patient had difficulties as noted on Oatmeal with no other foods from the tray attempted. RN to contact kitchen about error. At onset, EQUIPMENT ENGINEER was feeding patient pudding, which was going much better. ENGINEERING AID then continued with feeding patient pudding cup, with tongue pumping noted to propel bolus, slight delay initiating swallow, audible swallow, and patient noted to swallow a second time when cued. Noted mild oral residual after swallow. Patient has sippy cup that was brought from home that had water in it at this visit. Patient was able to sip independently from this cup, but on water produced audible gurgle after swallow, with patient attempting multiple swallows still with gurgle evident. Patient was then given nectar thick juice, first by tsp, then by independent sip via sippy cup. Patient appeared able to clear sip on single swallow at this consistency, no evidence of gurgle or pharyngeal residual after swallow. Recommend DOWNGRADE diet to PUREE (NDD2) with NECTAR THICK liquids, pills crushed in puree. Patient's niece, her and regular caregiver were present, and all agreed with recommendations, RN advised in person, MD HILL by secure text. ENGINEERING AID made diet change in chart. Recommend ENGINEERING AID tx at next level of care for swallow and speech. Frequency/Duration: Date Range for Service Req: Timeline to reassess: Additional Comments: Treatment: Assessment: Court Operations Clerk Clinican/Clinical Fellow: No Supervisory Statement: I have reviewed and agree with the student/clinical fellow's documentation: N/A Speech Language Pathologist: Judy Edmondson MA-SALLY/ENGINEERING AID
--- NOTE | 2023-09-18 09:59 | MHC.CM.ED ---
Addendum entered by Kelly Booth 09/18/23 12:49: Copy of HCP obtained from son at bedside. Copy placed in chart. Original given back to son. Original Note: Patient remains in ER. Spoke with patient's daughter, Libby, via telephone at [phone]. Plan of care is now hospice at a nursing home facility. Referrals sent to [facility] in [place] and [facility] in [place]. Waiting to hear if either hospice house has bed availability. Referral also rebroadcasted to all facilities with this new information provided. Libby aware she will need to privately pay for room and board. Per LEONIE Souza and HCP may be at [facility]. T/W is attempting to obtain copies. Continue to monitor for d/c needs.
--- NOTE | 2023-09-18 10:40 | PC.NURSE ---
Repositioned onto let side per patients request, seen by speech, family at bedside
[2023-09-18] MEDS: Acetaminophen 325 MG TABLET 650 MG PO (12:53)
--- NOTE | 2023-09-18 12:57 | PC.NURSE ---
report given to RN In overflow, family aware, IV removed
[2023-09-18 13:14] VITALS: BP 146/63; PULSE 78; RESP 18; TEMP 36.7; O2SAT 96
--- NOTE | 2023-09-18 13:47 | PC.NURSE ---
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 purewick in place. hypertensive, provider aware, other vss. aspiration risk - bed at 90 degrees w meals, 1:1 feed, pureed diet/nectar thickened liquids.
--- NOTE | 2023-09-18 15:20 | MHC.CM.ED ---
Patient will transfer to [facility] at [facility], tomorrow 09/19 at 11am. New MOLST completed via telephone with daughter Libby and Kisha GREEN. Mauricio LING booked. [facility] with chart. Patient, Elisabeth Souza RN and Kisha GREEN aware. Continue to monitor for d/c needs.
--- NOTE | 2023-09-18 17:15 | PC.NURSE ---
pt positioned upright in bed for feeding, 1:1 feed d/t concern for aspiration, pt tolerated pureed diet well. ate ~ 50% of dinner.
[2023-09-18 21:03] VITALS: BP 137/72; PULSE 70; RESP 20; TEMP 36.5; O2SAT 99
--- NOTE | 2023-09-18 21:59 | PC.NURSE ---
pt medicated according to oct. pt repositioned to R side by this rn and pct utilizing pillows
[2023-09-19] MEDS: oxyCODONE HCl Immed Release 5 MG TABLET PO (02:58)
--- NOTE | 2023-09-19 05:40 | PC.NURSE ---
pt repositioned to R side utilizing pillows. pt provided with drink of nectar thick juice. pt denies new needs at this time
[2023-09-19 06:00] VITALS: BP 136/88; PULSE 79; RESP 18; TEMP 37.1; O2SAT 97
--- NOTE | 2023-09-19 08:36 | PC.NURSE ---
Alert and oriented, ate well for breakfast, turned and repositioned. Pillow placed between legs for comfort
[2023-09-19] MEDS: hydroCHLOROthiazide 25 MG TABLET PO (09:16)
[2023-09-19] MEDS: diazePAM 5 MG TABLET 2.5 MG PO (09:16)
[2023-09-19] MEDS: Escitalopram Oxalate 5 MG TABLET PO (09:19)
--- NOTE | 2023-09-19 09:58 | PC.NURSE ---
Personal care provided , turned and repositioned, hand splint and wedge re applied
--- NOTE | 2023-09-19 10:12 | PC.NURSE ---
Report given to to Stefani REILLY at [facility], family aware of transport. EMS provided with MOLST form
== END 2023-09-19 10:26 | disposition other institution (70) ==
PROVIDERS: Physician Assistant Medical; Emergency Provider Emergency Medicine Emergency Medical Services
DX: S40.212A Abrasion of left shoulder, initial encounter (principal); R10.2 Pelvic and perineal pain; R09.89 Other specified symptoms and signs involving the circulatory and respiratory systems; R13.10 Dysphagia, unspecified; R07.89 Other chest pain; M54.2 Cervicalgia; R51.9 Headache, unspecified; M25.512 Pain in left shoulder; M79.604 Pain in right leg; X58.XXXA Exposure to other specified factors, initial encounter; Y93.9 Activity, unspecified; Y92.9 Unspecified place or not applicable; Y99.8 Other external cause status; Z11.52 Encounter for screening for COVID-19; Z79.899 Other long term (current) drug therapy
CPT/HCPCS: 36415; 70450; 71045; 71250; 71260; 72125; 73030; 73590; 74177; 80048; 81001; 82550; 84484; 85025; 87502; 87635; 93005; 96361; 96365; 96374; 96376; 99285; J1170; J2543; Q9967

== ENCOUNTER → 2023-09-16 11:07 | Outpatient (BNV) | payer MEDICARE, OTHER, SELFPAY | PROVIDERS: Emergency Provider Emergency Medicine Emergency Medical Services; Visit Provider Internal Medicine Cardiovascular Disease | DX: R94.31 Abnormal electrocardiogram [ECG] [EKG] (principal) | CPT/HCPCS: 93010 ==